=== PATIENT | female | born 1970 | race African-American/Black ===

== ENCOUNTER 2020-08-24 16:35 | Outpatient (REF) | payer BC, SELFPAY | END 2020-08-24 16:36 | disposition home or self-care (01) | LOC: HO.LNP 16:35 | PROVIDERS: Visit Provider Hospitalist | DX: R30.0 Dysuria (principal) | CPT/HCPCS: 87086 ==

== ENCOUNTER 2020-12-11 14:51 | Outpatient (REF) | payer BC, SELFPAY | END 2020-12-11 14:52 | disposition home or self-care (01) | LOC: HO.LAB 14:51 | PROVIDERS: PCP Nurse Practitioner Family; Visit Provider Internal Medicine | DX: Z20.822 Contact with and (suspected) exposure to COVID-19 (principal) | CPT/HCPCS: U0003; U0005 ==

== ENCOUNTER 2021-03-05 11:21 | Outpatient (REF) | payer BC, SELFPAY | END 2021-03-05 11:22 | disposition home or self-care (01) | LOC: HO.LAB 11:21 | PROVIDERS: Visit Provider Internal Medicine | DX: Z20.822 Contact with and (suspected) exposure to COVID-19 (principal) | CPT/HCPCS: C9803; U0003; U0005 ==

== ENCOUNTER 2022-05-22 09:57 | Outpatient (REF) | payer BC, SELFPAY ==
--- NOTE | ~2022-05-22 | FL_ITS ---
EXAMINATION: FL BARIUM SWALLOW CLINICAL INFORMATION: Coughing, dysphagia, possible reflux. COMPARISON: None TECHNIQUE: Barium swallow examination is performed using fluoroscopic evaluation in addition to multiple fluoroscopic spot views, including cine images during swallowing. The patient is imaged both upright and prone and using both thick and thin sulfate along with effervescent granules. Barium pill challenge also performed. Fluoroscopy time: 1.3 minutes DAP: 5.203 Gycm2 Images: 20 FINDINGS: Swallowing function is normal and there is no aspiration. The cervical esophagus has no web or diverticulum or stricture. No cervical achalasia. The cervical thoracic junction appears normal. The thoracic esophagus shows normal motility with no obstruction, stricture, or ulceration. There is no hiatal hernia or spontaneous reflux. There is mild gastroesophageal reflux to mid thoracic esophagus only seen during the water siphon test. There is prompt transit of the barium pill from mouth to stomach. Cursory view upper abdomen shows no gastric outlet obstruction. FL/FL barium swallow IMPRESSION: -Gastroesophageal reflux to mid thoracic esophagus during water siphon test. -Normal motility. No stricture, ulceration, or hiatal hernia.
== END 2022-05-22 09:58 | disposition home or self-care (01) ==
LOC: HO.XRAY 09:57
PROVIDERS: PCP Nurse Practitioner Adult Health; Visit Provider Otolaryngology
DX: R13.10 Dysphagia, unspecified (principal); K21.9 Gastro-esophageal reflux disease without esophagitis
CPT/HCPCS: 74220